=== PATIENT | male | born 1955 | race African-American/Black ===

== ENCOUNTER 2016-12-07 08:33 | Emergency (ER) | payer MEDICAID, OTHER ==
[~2016-12-07] VITALS: Ht 167.6 cm; Wt 59.0 kg
[~2016-12-07 08:33] MED LIST: CARB200T14 PO; PHEN100C PO
[2016-12-07 08:38] VITALS: BP 171/93; PULSE 64; RESP 20; O2SAT 99
--- NOTE | 2016-12-07 08:57 | PD ---
HPI Chief Complaint: Seizure Time Seen by Provider: 08:47 Travel History International Travel<30 days: No Contact w/Intl Traveler<30days: No Traveled to known affect area: No History of Present Illness HPI This is a 61-year-old male with a history seizure disorder, presents today after having a seizure. Report was that he fell out of bed striking his head. He denies any head pain or neck pain at this time. He does have an obvious laceration to his left upper forehead as well as matted blood in his hair. Patient reports she is supposed to be taking Dilantin and phenobarb. He states he's been off the medications for "quite some time". The patient denies any other medical history. He was unsure of his last tetanus shot however we were able to ascertain that he had one in 2016. There is no reported incontinence. Patient reports it's been a while since his last seizure however he was unable to tell me the exact time or date. PFSH Past Medical History Autoimmune Disease: No Blood Disorders: No Cancer: No Cardiovascular Problems: No Diminished Hearing: No Endocrine: No Genitourinary: No Musculoskeletal: No Neurologic: Yes Psychiatric: No Respiratory: No Seizures: Yes Tetanus Vaccination: < 5 Years Influenza Vaccination: No Past Surgical History Surgical History: No Previous Surgery Other Surgery: No Social History Alcohol Use: No Tobacco Use: No ( QUIT WITHIN LAST YEAR 11/26) Substance Use: No Allergies-Medications (Allergen,Severity, Reaction): Coded Allergies: No Known Allergies (Verified , 11/20/15) Reported Meds & Prescriptions Reported Meds & Active Scripts Active Dilantin (Phenytoin Extended) 100 Mg Cap 100 Mg PO DAILY 30 Days Carbamazepine 200 Mg Tab 200 Mg PO TID 30 Days Reported Phenobarbital 100 Mg Tab 100 Mg PO BID Review of Systems Except as stated in HPI: all other systems reviewed are Neg General / Constitutional: No: Fever, Chills Eyes: No: Blurred Vision, Photophobia HENT: No: Headaches, Neck Pain Cardiovascular: No: Chest Pain or Discomfort, Palpitations Respiratory: Positive: Cough, No: Shortness of Breath, Wheezing Gastrointestinal: No: Nausea, Vomiting, Abdominal Pain Genitourinary: No: Dysuria, Incontinence Musculoskeletal: No: Weakness, Pain Neurologic: Positive: Seizures, No: Dizziness, Headache Physical Exam Narrative GENERAL: Well-developed well-nourished male in no acute distress. SKIN: Focused skin assessment warm/dry. HEAD: Normocephalic. The patient has a 1 cm laceration to his left upper forehead. There is also matted blood in the top of his left head. It is difficult to ascertain whether there is a laceration or not. EYES: No scleral icterus. No injection or drainage. ENT: No nasal bleeding or discharge. Mucous membranes pink and moist. NECK: Trachea midline. Supple. CARDIOVASCULAR: Regular rate and rhythm. No murmur appreciated. RESPIRATORY: No accessory muscle use. Clear to auscultation. Breath sounds equal bilaterally. GASTROINTESTINAL: Abdomen soft, non-tender, nondistended. Hepatic and splenic margins not palpable. MUSCULOSKELETAL: No obvious deformities. No clubbing. No cyanosis. No edema. NEUROLOGICAL: Awake and alert. No obvious cranial nerve deficits. Motor grossly within normal limits. Normal speech. PSYCHIATRIC: Appropriate mood and affect; insight and judgment normal. Data Data Last Documented VS Vital Signs Date Time Temp Pulse Resp B/P (MAP) Pulse Ox O2 Delivery O2 Flow Rate FiO2 12/07/16 12:07 60 16 139/85 (103) 97 Room Air Orders Orders Complete Blood Count With Diff (12/07/16 08:47) Phenytoin (Dilantin) (12/07/16 08:47) Phenobarbital (12/07/16 08:47) Ct Brain W/O Iv Contrast(Rout) (12/07/16 ) Blood Glucose (12/07/16 08:47) Ecg Monitoring (12/07/16 08:47) Iv Access Insert/Monitor (12/07/16 08:47) Oximetry (12/07/16 08:47) Comprehensive Metabolic Panel (12/07/16 08:47) Sodium Chloride 0.9% Flush (Ns Flush) (12/07/16 09:00) Lidocai-Epi 1%-1:100,000 Inj (Xylocaine- (12/07/16 10:15) Lidocaine 1% Inj (50 Ml) (Xylocaine 1% I (12/07/16 10:16) Phenytoin Inj (Dilantin Inj) (12/07/16 11:30) Labs Laboratory Tests Test 12/07/16 08:54 White Blood Count 5.1 TH/MM3 Red Blood Count 5.10 MIL/MM3 Hemoglobin 14.5 GM/DL Hematocrit 43.2 % Mean Corpuscular Volume 84.8 FL Mean Corpuscular Hemoglobin 28.4 PG Mean Corpuscular Hemoglobin Concent 33.5 % Red Cell Distribution Width 15.1 % Platelet Count 125 TH/MM3 Mean Platelet Volume 9.3 FL Neutrophils (%) (Auto) 51.5 % Lymphocytes (%) (Auto) 34.2 % Monocytes (%) (Auto) 9.2 % Eosinophils (%) (Auto) 4.2 % Basophils (%) (Auto) 0.9 % Neutrophils # (Auto) 2.6 TH/MM3 Lymphocytes # (Auto) 1.7 TH/MM3 Monocytes # (Auto) 0.5 TH/MM3 Eosinophils # (Auto) 0.2 TH/MM3 Basophils # (Auto) 0.0 TH/MM3 CBC Comment DIFF FINAL Differential Comment Blood Urea Nitrogen 15 MG/DL Creatinine 1.12 MG/DL Random Glucose 91 MG/DL Total Protein 6.9 GM/DL Albumin 3.4 GM/DL Calcium Level 8.2 MG/DL Alkaline Phosphatase 97 U/L Aspartate Amino Transf (AST/SGOT) 15 U/L Alanine Aminotransferase (ALT/SGPT) 16 U/L Total Bilirubin 0.4 MG/DL Sodium Level 141 MEQ/L Potassium Level 3.8 MEQ/L Chloride Level 110 MEQ/L Carbon Dioxide Level 24.3 MEQ/L Anion Gap 7 MEQ/L Estimat Glomerular Filtration Rate 81 ML/MIN Phenytoin (Dilantin) Level 0.6 MCG/ML Phenobarbital Level LESS THAN 2.1 MCG/ML MDM Medical Decision Making Medical Screen Exam Complete: Yes Emergency Medical Condition: Yes Differential Diagnosis Breakthrough seizure versus medication noncompliance versus scalp laceration versus forehead laceration Narrative Course This is a 61 year-old gentleman history of seizure disorder, presents after having a seizure. The patient probably fell out of bed. Patient had a laceration to his left eyebrow. He did have blood matted in his hair but we did not find any other laceration. Laceration was repaired by GLORIA Riley. Dilantin level was 0.6. Phenobarbital level was not detected. The patient initially stated he was on phenobarbital and Dilantin. The patient states she's been off medications for some time. Looking through his last record, he was on carbamazepine 200 mg 3 times a day and Dilantin 100 mg daily. I went back and confirmed with both him and his son and they report that it was carbamazepine and Dilantin. He'll be given prescription for the carbamazepine 200 mg 3 times a day as well as Dilantin 100 mg daily. He'll be given information on the [facility]. Diagnosis Primary Impression: Seizure Additional Impressions: Medication refill left forehead laceration Additional Instructions: Suture removal in 7 days. Keep wound clean and dry. Return if evidence of infection. Make appointment with the [facility] for her medical care. Scripts Phenytoin Extended (Dilantin) 100 Mg Cap 100 MG PO DAILY for Control Seizures for 30 Days, CAP 0 Refills Prov: Lanre Billy MD 12/07/16 Carbamazepine (Carbamazepine) 200 Mg Tab 200 MG PO TID for 30 Days, TAB 1 Refill Prov: Lanre Billy MD 12/07/16 Disposition: 01 DISCHARGE HOME Condition: Stable Lanre Billy MD Dec 07, 2016 08:57
[2016-12-07] MEDS ORDERED: SODIUM CHLORIDE 0.9% FLUSH 10 ML FLUSH IVF PRN (09:00)
[2016-12-07 09:07] LABS: AUTOMATED NEUTROPHIL # 2.6 TH/MM3 (1.8-7.7); BASOPHIL % 0.9 % (0.0-2.0); EOSINOPHIL # 0.2 TH/MM3 (0-0.4); EOSINOPHIL % 4.2 % (0.0-4.0); HEMATOCRIT 43.2 % (39.0-51.0); HEMO FLAGS DIFF FINAL; LYMPH % 34.2 % (9.0-44.0); LYMPHOCYTE # 1.7 TH/MM3 (1.0-4.8); MEAN CELL VOLUME 84.8 FL (80.0-100.0); MEAN CORPUSCULAR HEMOGLOBIN 28.4 PG (27.0-34.0); MEAN CORPUSCULAR HGB CONC 33.5 % (32.0-36.0); MONO % 9.2 % (0.0-8.0); NEUT % 51.5 % (16.0-70.0); PLATELET COUNT 125 TH/MM3 (150-450); RED CELL DISTRIBUTION WIDTH 15.1 % (11.6-17.2); WHITE BLOOD COUNT 5.1 TH/MM3 (4.0-11.0)
--- NOTE | 2016-12-07 09:12 | RADRPT ---
EXAM DATE/TIME: 12/07/2016 08:58 [facility] COMPARISON: CT BRAIN W/O CONTRAST, November 20, 2015, 23:02. INDICATIONS : Trauma; fall. RADIATION DOSE: 56.35 CTDIvol (mGy) MEDICAL HISTORY : Seizures. SURGICAL HISTORY : None. ENCOUNTER: Initial ACUITY: 1 day PAIN SCALE: 4/10 LOCATION: cranial TECHNIQUE: Multiple contiguous axial images were obtained of the head. Using automated exposure control and adj ustment of the mA and/or kV according to patient size, radiation dose was kept as low as reasonably a chievable to obtain optimal diagnostic quality images. DICOM format image data is available electro nically for review and comparison. FINDINGS: CEREBRUM: The ventricles are normal for age. No evidence of midline shift, mass lesion, hemorrhage or acute in farction. No extra-axial fluid collections are seen. POSTERIOR FOSSA: The cerebellum and brainstem are intact. The 4th ventricle is midline. The cerebellopontine angle i s unremarkable. EXTRACRANIAL: The visualized portion of the orbits is intact. SKULL: The calvaria is intact. No evidence of skull fracture. CONCLUSION: Negative for an acute process. Benito Doll MD FACR on December 07, 2016 at 9:10 Board Certified Radiologist. This report was verified electronically.
[2016-12-07] MEDS ORDERED: PHEN1TAB6 PO (09:13)
[2016-12-07 09:30] LABS: ALT (GPT) 16 U/L (12-78); GLOMERULAR FILTRATION RATE 81 ML/MIN (>89)
[2016-12-07 09:32] LABS: ALKALINE PHOSPHATASE 97 U/L (45-117); PHENOBARBITAL LESS THAN 2.1 MCG/ML (15.0-40.0); TOTAL BILIRUBIN ADULT 0.4 MG/DL (0.2-1.0)
[2016-12-07 09:34] LABS: ANION GAP 7 MEQ/L (5-15); AST (GOT) 15 U/L (15-37); BICARBONATE 24.3 MEQ/L (21.0-32.0); BLOOD UREA NITROGEN 15 MG/DL (7-18); CHLORIDE 110 MEQ/L (98-107); POTASSIUM 3.8 MEQ/L (3.5-5.1); SODIUM (NA) 141 MEQ/L (136-145)
[2016-12-07 09:50] VITALS: BP 170/92; PULSE 57; RESP 14; O2SAT 98
[2016-12-07] MEDS ORDERED: LIDOCAINE 1%/EPINEPHrine 1:100,000 SOLN 50 ML VIAL INFIL ONE (10:15)
[2016-12-07] MEDS ORDERED: LIDOCAINE HCL 1% 50 ML VIAL ONE (10:16)
[2016-12-07] MEDS ORDERED: PHENYTOIN INJ 500 MG in SODIUM CHLORIDE 0.9% INJ 100 ML IV ONE (11:30)
--- NOTE | 2016-12-07 12:04 | PD ---
Physical Exam Time Seen by Provider: 10:[address] Billy asked me to repair the laceration to the left forehead. Data Data Last Documented VS Vital Signs Date Time Temp Pulse Resp B/P (MAP) Pulse Ox O2 Delivery O2 Flow Rate FiO2 12/07/16 09:50 57 14 170/92 (118) 98 Room Air Orders Orders Complete Blood Count With Diff (12/07/16 08:47) Phenytoin (Dilantin) (12/07/16 08:47) Phenobarbital (12/07/16 08:47) Ct Brain W/O Iv Contrast(Rout) (12/07/16 ) Blood Glucose (12/07/16 08:47) Ecg Monitoring (12/07/16 08:47) Iv Access Insert/Monitor (12/07/16 08:47) Oximetry (12/07/16 08:47) Comprehensive Metabolic Panel (12/07/16 08:47) Sodium Chloride 0.9% Flush (Ns Flush) (12/07/16 09:00) Lidocai-Epi 1%-1:100,000 Inj (Xylocaine- (12/07/16 10:15) Lidocaine 1% Inj (50 Ml) (Xylocaine 1% I (12/07/16 10:16) Phenytoin Inj (Dilantin Inj) (12/07/16 11:30) Labs Laboratory Tests Test 12/07/16 08:54 White Blood Count 5.1 TH/MM3 Red Blood Count 5.10 MIL/MM3 Hemoglobin 14.5 GM/DL Hematocrit 43.2 % Mean Corpuscular Volume 84.8 FL Mean Corpuscular Hemoglobin 28.4 PG Mean Corpuscular Hemoglobin Concent 33.5 % Red Cell Distribution Width 15.1 % Platelet Count 125 TH/MM3 Mean Platelet Volume 9.3 FL Neutrophils (%) (Auto) 51.5 % Lymphocytes (%) (Auto) 34.2 % Monocytes (%) (Auto) 9.2 % Eosinophils (%) (Auto) 4.2 % Basophils (%) (Auto) 0.9 % Neutrophils # (Auto) 2.6 TH/MM3 Lymphocytes # (Auto) 1.7 TH/MM3 Monocytes # (Auto) 0.5 TH/MM3 Eosinophils # (Auto) 0.2 TH/MM3 Basophils # (Auto) 0.0 TH/MM3 CBC Comment DIFF FINAL Differential Comment Blood Urea Nitrogen 15 MG/DL Creatinine 1.12 MG/DL Random Glucose 91 MG/DL Total Protein 6.9 GM/DL Albumin 3.4 GM/DL Calcium Level 8.2 MG/DL Alkaline Phosphatase 97 U/L Aspartate Amino Transf (AST/SGOT) 15 U/L Alanine Aminotransferase (ALT/SGPT) 16 U/L Total Bilirubin 0.4 MG/DL Sodium Level 141 MEQ/L Potassium Level 3.8 MEQ/L Chloride Level 110 MEQ/L Carbon Dioxide Level 24.3 MEQ/L Anion Gap 7 MEQ/L Estimat Glomerular Filtration Rate 81 ML/MIN Phenytoin (Dilantin) Level 0.6 MCG/ML Phenobarbital Level LESS THAN 2.1 MCG/ML MDM Supervised Visit with [facility]IER[facility]: No Narrative Course Dr. Billy asked me to repair the laceration to the left forehead. See my procedure note for laceration repair. Procedures Procedure Narrative LACERATION LOCATION: Left for head LENGTH: One and half centimeters NUMBER OF STITCHES/TRU: 3 simple interrupted sutures REPAIR: The area of the laceration was prepped with Betadine and sterilely draped. The laceration was infiltrated with 1% lidocaine. The wound was copiously irrigated and explored without evidence of foreign body, tendon injury or neurovascular injury. The wound was closed using 6-0 Prolene. This was a single layer repair. A sterile dressing was applied. The patient was advised to keep the dressing clean and dry. Patient tolerated the procedure well. Nemo Romero Dec 07, 2016 12:04
[2016-12-07 12:07] VITALS: BP 139/85; PULSE 60; RESP 16; O2SAT 97
[2016-12-07] MEDS ORDERED: CARB200T PO (12:14)
[2016-12-07] MEDS ORDERED: DILA100C PO (12:14)
== END 2016-12-07 13:46 | disposition home or self-care (01) ==
LOC: NEPE 08:33
DX: G40.909 Epilepsy, unspecified, not intractable, without status epilepticus (principal); S01.81XA Laceration without foreign body of other part of head, initial encounter; W06.XXXA Fall from bed, initial encounter
CPT/HCPCS: 12011; 70450; 80053; 80184; 80185; 85025; 96365; 99285; J1165